=== PATIENT | female | born 1980 | race Caucasian/White ===

== ENCOUNTER 2019-02-22 15:11 | Emergency (ER) | payer MEDICAID ==
[2019-02-22 15:17] VITALS: BMI 23.7
[2019-02-22 15:26] VITALS: RESP 18; TEMP 98.2; O2SAT 100
--- NOTE | 2019-02-22 15:38 | ED PDOC ---
Arrival/HPI - General Chief Complaint: Abdominal Pain Historian: Patient - History of Present Illness Narrative History of Present Illness (Text): 02/22/19 15:31 A 38 year old female presents to the emergency department with a complaint of mid- suprapubic abdominal pain. Patient reports that she has been experiencing the pain since yesterday. She notes that the pain is exacerbated with walking. The patient states that she experienced associated chills yesterday. She reports one sexual partner. Her last menstrual period was in December. She denies fevers, headache, dizziness, chest pain, shortness of breath, dyspnea on exertion, cough, nausea, vomiting, diarrhea, back pain, neck pain, urinary/bowel changes, dysuria, hematuria, vaginal bleeding/discharge, or any other complaint. Time/Duration: Other (Yesterday) Symptom Onset: Sudden Symptom Course: Unchanged Activities at Onset: Rest, Light Context: Home Past Medical History - Provider Review Nursing Documentation Reviewed: Yes - Infectious Disease Hx of Infectious Diseases: None - Tetanus Immunization Tetanus Immunization: Unknown - Pulmonary Hx Asthma: Yes - Gastrointestinal Other/Comment: Gallbladder problems - Psychiatric Hx Depression: No Hx Emotional Abuse: No Hx Physical Abuse: No Hx Substance Use: No - Past Surgical History Past Surgical History: No Previous - Anesthesia Hx Anesthesia: No - Suicidal Assessment Feels Threatened In Home Enviroment: No Family/Social History - Physician Review Nursing Documentation Reviewed: Yes Family/Social History: No Known Family HX Smoking Status: Never Smoked Hx Alcohol Use: No Hx Substance Use: No Hx Substance Use Treatment: No Allergies/Home Meds Allergies/Adverse Reactions: Allergies iodine Allergy (Verified 02/22/19 15:18) RASH shrimp Allergy (Verified 02/22/19 15:18) ANAPHYLAXIS Home Medications: Home Meds Medication Instructions Recorded Confirmed Albuterol 0.083% [Albuterol 3 ml IH PRN PRN 05/26/13 05/26/13 Sulfate 3 Ml] Albuterol Sulfate [Ventolin Hfa] 0.09 mg IH PRN PRN 05/26/13 05/26/13 Amoxicillin/Clavulanate [Augmentin 1 tab PO Q12 05/26/13 05/26/13 875 MG-125 MG] Fluticasone/Salmeterol [Advair 1 dsk IH PRN PRN 05/26/13 05/26/13 Diskus 250/50] Promethazine DM 5 ml PO Q6 PRN 05/26/13 05/26/13 [Dextromethorphan/Promethazine 15 MG/5 Ml-6.25] Review of Systems - Physician Review All systems were reviewed & negative as marked: Yes - Review of Systems Constitutional: absent: Fevers Respiratory: absent: SOB, Cough Cardiovascular: absent: Chest Pain, OCHOA Gastrointestinal: Abdominal Pain. absent: Stool Changes, Diarrhea, Nausea, Vomiting Genitourinary Female: absent: Urine Output Changes Musculoskeletal: absent: Back Pain, Neck Pain Neurological: absent: Headache, Dizziness Physical Exam Vital Signs Reviewed: Yes Vital Signs Temp Pulse Resp BP Pulse Ox 02/22/19 15:24 98.2 F 88 18 134/80 100 Temperature: Afebrile Blood Pressure: Normal Pulse: Regular Respiratory Rate: Normal Appearance: Positive for: Well-Appearing, Non-Toxic, Comfortable Pain Distress: None Mental Status: Positive for: Alert and Oriented X 3 - Systems Exam Head: Present: Atraumatic, Normocephalic Pupils: Present: PERRL Extroacular Muscles: Present: EOMI Conjunctiva: Present: Normal Mouth: Present: Moist Mucous Membranes Neck: Present: Normal Range of Motion Respiratory/Chest: Present: Clear to Auscultation, Good Air Exchange. No: Respiratory Distress, Accessory Muscle Use Cardiovascular: Present: Regular Rate and Rhythm, Normal S1, S2. No: Murmurs Abdomen: Present: Tenderness (suprapubic tenderness on palpation.). No: Distention, Peritoneal Signs Back: Present: Normal Inspection. No: CVA Tenderness Upper Extremity: Present: Normal Inspection. No: Cyanosis, Edema Lower Extremity: Present: Normal Inspection. No: Edema Neurological: Present: GCS=15, CN II-XII Intact, Speech Normal Skin: Present: Warm, Dry, Normal Color. No: Rashes Psychiatric: Present: Alert, Oriented x 3, Normal Insight, Normal Concentration Medical Decision Making ED Course and Treatment: 02/22/19 15:40 Impression: A 38 year old female presents to the emergency department with a complaint of suprapubic abdominal pain. Plan: -- Pelvic Ultrasound -- Urinalysis -- Urine Culture -- Reassess and disposition Prior Visits: Notes and results from previous visits were reviewed. Progress Notes: 02/22/19 17:36 US reveals fibroid with no evidence of thickened endometrial stripe as well as no evidence of ovarian cyst. UA reveals mild hematuria. Patient updated on lab and image findings and advised to follow up with her [facility]. 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 Opportunity for questions given and answered. - Lab Interpretations Lab Results: Lab Results 02/22/19 15:20: Urine Color Yellow, Urine Appearance Clear, Urine pH 6.0, Ur Specific [place] 1.020, Urine Protein Negative, Urine Glucose (UA) Negative, Urine Ketones Negative, Urine Blood Trace-intact H, Urine Nitrate Negative, Urine Bilirubin Negative, Urine Urobilinogen 0.2, Ur Leukocyte Esterase Negative, Urine RBC 1 - 3 H, Urine WBC None, Ur Epithelial Cells 1 - 3 I have reviewed the lab results: Yes - Scribe Statement The provider has reviewed the documentation as recorded by the Scribe Carine Johnson Provider Scribe Attestation: All medical record entries made by the Scribe were at my direction and pers onally dictated by me. I have reviewed the chart and agree that the record accurately reflects my personal performance of the history, physical exam, medical decision making, and the department course for this patient. I have also personally directed, reviewed, and agree with the discharge instructions and disposition. Disposition/Present on Arrival - Present on Arrival Any Indicators Present on Arrival: No History of DVT/PE: No History of Uncontrolled Diabetes: No Urinary Catheter: No History of Decub. Ulcer: No History Surgical Site Infection Following: None - Disposition Have Diagnosis and Disposition been Completed?: Yes Diagnosis: Fibroid, Hematuria Disposition: HOME/ ROUTINE Disposition Time: 17:40 Patient Plan: Discharge Condition: STABLE Discharge Instructions (ExitCare): Blood in the Urine (Hematuria), Adult (DC) Print Language: SPA Additional Instructions: All medical record entries made by the Scribe were at my direction and personally dictated by me. I have reviewed the chart and agree that the record accurately reflects my personal performance of the history, physical exam, medical decision making, and the department course for this patient. I have also personally directed, reviewed, and agree with the discharge instructions and disposition. Please follow up with your OBG/YN in 2 weeks Monitor your periods for intense cramping or bleeding. Prescriptions: Naproxen 500 mg PO BID #10 tab Referrals: Canelo Casanova MD [Medical Doctor] - Follow up with primary Forms: [employer] ([place]), WORK NOTE
[2019-02-22 16:12] LABS: URINE BILIRUBIN NEGATIVE (NEGATIVE); URINE BLOOD TRACE-INTACT (NEGATIVE); URINE GLUCOSE (UA) NEGATIVE (NEGATIVE); URINE LEUKOCYTE ESTERASE NEGATIVE Leu/uL (NEGATIVE); URINE PROTEIN NEGATIVE mg/dL (<30 mg/dL); URINE UROBILINOGEN 0.2 E.U./dL (<1 E.U./dL)
[2019-02-22 16:14] LABS: URINE APPEARANCE CLEAR (CLEAR); URINE COLOR YELLOW (YELLOW)
[2019-02-22 17:51] VITALS: BP 112/72; PULSE 80
--- NOTE | 2019-02-22 18:01 | US ---
Date of service: 02/22/2019 HISTORY: suprapubic pain w/ h/o ovarian cyst COMPARISON: None available. TECHNIQUE: Transvaginal pelvic ultrasound FINDINGS: UTERUS: Measures 9.8 x 4.7 x 6.1 cm. Anteverted. Heterogeneous region is noted within the posterior fundus measures approximately 3.1 x 2.4 x 2.9 cm, possibly fibroid. ENDOMETRIUM: Measures 3 mm in diameter. CERVIX: No cervical abnormality identified. RIGHT OVARY: Measures 2.6 x 2.5 x 2.9 cm. Blood flow is demonstrated. LEFT OVARY: Measures 2.3 x 3.7 x 3.5 cm. Blood flow is demonstrated. FREE FLUID: No significant free fluid noted. OTHER FINDINGS: None. IMPRESSION: Heterogeneous region is noted within the posterior fundus, possibly fibroid measuring approximately 3.1 x 2.4 x 2.9 cm.
== END 2019-02-22 18:08 | disposition home or self-care (01) ==
LOC: ED 15:11
DX: R31.9 Hematuria, unspecified (principal); D25.9 Leiomyoma of uterus, unspecified
CPT/HCPCS: 76830; 81001; 81025; 87086; 96372; 99283; J1885